=== PATIENT | female | born 1965 | race Two or more races ===

== ENCOUNTER 2018-10-06 03:22 | Outpatient (CLI) | payer BC ==
[~2018-10-06 03:22] MED LIST: ARIP15TA3 PO; BUSP10TA10 PO; DULO-31 PO; HYDR-3965 PO; METF500T7 PO; TRAM50TA2 PO; ZOLP10TA5 PO
== END 2018-10-06 23:59 | disposition home or self-care (01) ==
LOC: DIABETIC 03:22
PROVIDERS: ATTEND Internal Medicine
DX: E11.65 Type 2 diabetes mellitus with hyperglycemia (principal); E11.21 Type 2 diabetes mellitus with diabetic nephropathy; E11.40 Type 2 diabetes mellitus with diabetic neuropathy, unspecified; E11.319 Type 2 diabetes mellitus with unspecified diabetic retinopathy without macular edema; E11.43 Type 2 diabetes mellitus with diabetic autonomic (poly)neuropathy; K31.84 Gastroparesis; E78.5 Hyperlipidemia, unspecified; I10 Essential (primary) hypertension; I67.9 Cerebrovascular disease, unspecified; J44.9 Chronic obstructive pulmonary disease, unspecified
CPT/HCPCS: G0108

== ENCOUNTER 2018-11-17 02:16 | Outpatient (CLI) | payer BC | END 2018-11-17 23:59 | disposition home or self-care (01) | LOC: DIABETIC 02:16 | PROVIDERS: ATTEND Internal Medicine | DX: E11.65 Type 2 diabetes mellitus with hyperglycemia (principal); J44.9 Chronic obstructive pulmonary disease, unspecified; Z79.4 Long term (current) use of insulin; Z79.899 Other long term (current) drug therapy | CPT/HCPCS: G0108 ==